=== PATIENT | male | born 1985 | race Caucasian/White ===

== ENCOUNTER 2019-07-24 00:57 | Emergency (ER) | payer OTHER ==
[~2019-07-24] VITALS: Ht 177.8 cm; Wt 89.8 kg
[2019-07-24] MEDS ORDERED: DUI500 PO (02:20)
== END 2019-07-24 02:26 ==
LOC: ER 00:57
DX: S61.224A Laceration with foreign body of right ring finger without damage to nail, initial encounter (principal); W25.XXXA Contact with sharp glass, initial encounter; Y93.89 Activity, other specified; Y92.090 Kitchen in other non-institutional residence as the place of occurrence of the external cause; Y99.8 Other external cause status

== ENCOUNTER 2019-08-03 18:53 | Emergency (ER) | payer OTHER ==
[~2019-08-03] VITALS: Ht 180.3 cm; Wt 89.4 kg
[~2019-08-03 18:53] MED LIST: DUI500 PO
== END 2019-08-03 19:37 | disposition home or self-care (01) ==
LOC: ER 18:53
DX: Z48.02 Encounter for removal of sutures (principal)

== ENCOUNTER 2020-03-03 09:24 | Emergency (ER) | payer OTHER ==
[~2020-03-03] VITALS: Ht 177.8 cm; Wt 90.7 kg
== END 2020-03-03 13:40 | disposition home or self-care (01) ==
LOC: ER 09:24
DX: K29.60 Other gastritis without bleeding (principal); R10.13 Epigastric pain